=== PATIENT | female | born 1975 | race Caucasian/White ===

== ENCOUNTER 2020-09-17 07:11 | Emergency (ER) | payer SELFPAY ==
[~2020-09-17] VITALS: Ht 157.5 cm; Wt 136.1 kg
[2020-09-17] MEDS ORDERED: CIPRO HC OTIC S10 ML LEFT EAR (07:41)
[2020-09-17] MEDS ORDERED: CEFDINIR300 MG PO (07:41)
[2020-09-17] MEDS ORDERED: STROMECTOL3 MG PO (07:41)
[2020-09-17] MEDS ORDERED: PROVENTIL HFA6.7 GM INH (07:41)
[2020-09-17] MEDS ORDERED: DECADRON4 M1 PO (07:41)
== END 2020-09-17 08:13 | disposition home or self-care (01) ==
LOC: FSED 07:25
DX: R05 Cough (principal); U07.1 COVID-19; J98.8 Other specified respiratory disorders
CPT/HCPCS: 99282